=== PATIENT | male | born 1960 | race Caucasian/White ===

== ENCOUNTER 2022-12-02 10:01 | Outpatient (CLI) | payer OTHER | END 2022-12-02 10:07 | disposition home or self-care (01) | LOC: SONOGRAMA 10:01 | PROVIDERS: ATTEND Pathology Anatomic Pathology & Clinical Pathology | DX: D34 Benign neoplasm of thyroid gland (principal); D04.9 Carcinoma in situ of skin, unspecified; E04.1 Nontoxic single thyroid nodule ==